=== PATIENT | female | born 1965 | race Caucasian/White ===

== ENCOUNTER 2021-11-21 11:47 | Emergency (ER) | payer BC, SELFPAY ==
[2021-11-21 12:17] VITALS: BP 149/81; PULSE 95; RESP 16; TEMP 36.6; O2SAT 98
--- NOTE | 2021-11-21 13:03 | ED.URI ---
HPI - URI/Sore Throat General Chief Complaint: Upper Respiratory Infection Stated Complaint: Cough,Headache,Congestion Source: patient Mode of arrival: ambulatory Limitations: no limitations History of Present Illness HPI Narrative: 55-year-old female presented for complaint of headache, body ache, cough, congestion, and fever, onset today. Endorses sick contacts. Has not taken anything for symptoms. Denies chest pain, shortness of breath, wheezing, nausea, vomiting, diarrhea. Patient is not vaccinated for Covid Related Data Home Medications Medication Instructions Recorded Confirmed amlodipine 10 mg PO DAILY 11/21/21 11/21/21 icosapent ethyl [Vascepa] 2 g PO BID 11/21/21 11/21/21 losartan-hydrochlorothiazide 1 tablet PO DAILY 11/21/21 11/21/21 metformin 1,500 mg PO DAILY 11/21/21 11/21/21 metoprolol succinate 50 mg PO DAILY 11/21/21 11/21/21 rosuvastatin 5 mg PO DAILY 11/21/21 11/21/21 trazodone 100 mg PO DAILY 11/21/21 11/21/21 Allergies Allergy/AdvReac Type Severity Reaction Status Date / Time No Known Allergies Allergy Verified 11/21/21 12:14 Review of Systems Review of Systems: CONSTITUTIONAL: Endorses malaise, chills, sweats, fever. EYES: Denies visual changes, redness, or discharge. ENT: Reports rhinorrhea, congestion, sinus pain, otalgia and sore throat. CARDIOVASCULAR: Denies chest pain, palpitations, or edema. RESPIRATORY: Reports cough, post nasal drainage. Denies dyspnea. GASTROINTESTINAL: Denies abdominal pain, nausea, vomiting, diarrhea SKIN: Denies rash or itching. MUSCULOSKELETAL: Denies myalgia. NEUROLOGIC: Denies headache. [facility] Comments At time of signature, I have reviewed and agree with nursing past medical, surgical, social and family history unless otherwise noted. Please see nursing chart for further information. There is no relevant family history pertinent to the presenting complaint Exam Narrative: GENERAL: Ill-appearing, no acute distress. HEAD: Normocephalic EYES: PERRLA, conjunctivae clear ENT: Mucous membranes moist. TM pearly cortez with dull light reflex bilaterally; no tragal tenderness. Oropharynx erythematous without lesions. Tonsils enlarged and without exudate, no drooling, no hoarseness, no trismus, uvula midline. NECK: Supple. No lymphadenopathy CHEST: Clear to auscultation, breath sounds equal. No wheezing, rhonchi, rales, or stridor. No respiratory distress, speaks in full sentences. HEART: Regular rate and rhythm. No murmur heard. SKIN: Warm, dry, no rash. NEURO: Alert and oriented x3. PSYCH: Normal mood and affect Course Course Emergency Course: Covid positive Patient is aware of diagnosis, understands and agrees to treatment plan. Anticipatory guidance given. Patient agrees to follow-up as directed and is aware of reasons to seek care at the emergency department. Portions of this record may have been created with voice recognition software Level of Care: Express Care Visit Vital Signs Vital signs: Vital Signs Temperature 98 F 11/21/21 12:17 Pulse Rate 95 11/21/21 12:17 Respiratory Rate 16 11/21/21 12:17 Blood Pressure 149/81 H 11/21/21 12:17 Pulse Oximetry 98 11/21/21 12:17 Temperature 98 F 11/21/21 12:17 Pulse Rate 95 11/21/21 12:17 Respiratory Rate 16 11/21/21 12:17 Blood Pressure 149/81 H 11/21/21 12:17 Pulse Oximetry 98 11/21/21 12:17 MDM - URI/Sore Throat Differential Diagnosis Differential diagnosis: Likely upper respiratory infection, sinusitis, viral infection and influenza Lab Data Attestation: I reviewed the patient's lab results. Labs: Lab Results 11/21/21 Range/Units 12:20 POC SARS CoV-2 Ag Positive (Negative) Discharge Plan Discharge Clinical Impression: COVID-19 Patient Disposition: Home, Self-Care Condition: Stable Instructions: Antibiotic Form, COVID-19 (Coronavirus Disease 2019) (ED) Additional Instructions: Your rapid COVID test was positive today. The followin
--- NOTE | 2021-11-21 13:12 | ED.URI ---
HPI - URI/Sore Throat General Chief Complaint: Upper Respiratory Infection Stated Complaint: Cough,Headache,Congestion Source: patient Mode of arrival: ambulatory Limitations: no limitations History of Present Illness HPI Narrative: 55-year-old female presented for complaints of sinus pressure, congestion cough, sore throat, body aches, fever worsening over the past 2 days. She denies chest pain, shortness of breath, wheezing, nausea, vomiting. She has had 2 Covid vaccine, waiting on booster. She denies sick contacts. She has been taking Tylenol and Zyrtec for her symptoms. Related Data Home Medications Medication Instructions Recorded Confirmed amlodipine 10 mg PO DAILY 11/21/21 11/21/21 icosapent ethyl [Vascepa] 2 g PO BID 11/21/21 11/21/21 losartan-hydrochlorothiazide 1 tablet PO DAILY 11/21/21 11/21/21 metformin 1,500 mg PO DAILY 11/21/21 11/21/21 metoprolol succinate 50 mg PO DAILY 11/21/21 11/21/21 rosuvastatin 5 mg PO DAILY 11/21/21 11/21/21 trazodone 100 mg PO DAILY 11/21/21 11/21/21 Allergies Allergy/AdvReac Type Severity Reaction Status Date / Time No Known Allergies Allergy Verified 11/21/21 12:14 Review of Systems Review of Systems: CONSTITUTIONAL: Endorses malaise, chills, sweats, fever. EYES: Denies visual changes, redness, or discharge. ENT: Reports rhinorrhea, congestion, sinus pain, otalgia and sore throat. CARDIOVASCULAR: Denies chest pain, palpitations, or edema. RESPIRATORY: Reports cough, post nasal drainage. Denies dyspnea. GASTROINTESTINAL: Denies abdominal pain, nausea, vomiting, diarrhea SKIN: Denies rash or itching. MUSCULOSKELETAL: Denies myalgia. NEUROLOGIC: Denies headache. [facility] Comments At time of signature, I have reviewed and agree with nursing past medical, surgical, social and family history unless otherwise noted. Please see nursing chart for further information. There is no relevant family history pertinent to the presenting complaint Exam Narrative: GENERAL: Ill-appearing, nontoxic no acute distress. HEAD: Normocephalic EYES: PERRLA, conjunctivae clear ENT: Mucous membranes moist. TM pearly cortez with dull light reflex bilaterally; no tragal tenderness. Oropharynx erythematous without lesions. Tonsils enlarged and erythematous without exudate, no drooling, no hoarseness, no trismus, uvula midline. NECK: Supple. No lymphadenopathy CHEST: Clear to auscultation, breath sounds equal. No wheezing, rhonchi, rales, or stridor. No respiratory distress, speaks in full sentences. HEART: Regular rate and rhythm. No murmur heard. SKIN: Warm, dry, no rash. NEURO: Alert and oriented x3. PSYCH: Normal mood and affect Course Course Emergency Course: Patient is aware of diagnosis, understands and agrees to treatment plan. Anticipatory guidance given. Patient agrees to follow-up as directed and is aware of reasons to seek care at the emergency department. Portions of this record may have been created with voice recognition software Level of Care: Express Care Visit Vital Signs Vital signs: Vital Signs Temperature 98 F 11/21/21 12:17 Pulse Rate 95 11/21/21 12:17 Respiratory Rate 16 11/21/21 12:17 Blood Pressure 149/81 H 11/21/21 12:17 Pulse Oximetry 98 11/21/21 12:17 Temperature 98 F 11/21/21 12:17 Pulse Rate 95 11/21/21 12:17 Respiratory Rate 16 11/21/21 12:17 Blood Pressure 149/81 H 11/21/21 12:17 Pulse Oximetry 98 11/21/21 12:17 Reviewed MDM - URI/Sore Throat Differential Diagnosis Differential diagnosis: Likely upper respiratory infection and viral infection Lab Data Attestation: I reviewed the patient's lab results. Discharge Plan Discharge Clinical Impression: COVID-19 Patient Disposition: Home, Self-Care Condition: Stable Instructions: Antibiotic Form, COVID-19 (Coronavirus Disease 2019) (ED) Additional Instructions: Your rapid COVID test was positive today. The following recommendations have been made by the CDC and l
== END 2021-11-21 13:25 | disposition home or self-care (01) ==
PROVIDERS: Emergency Provider Nurse Practitioner Family; PCP Internal Medicine
DX: U07.1 COVID-19 (principal); E11.42 Type 2 diabetes mellitus with diabetic polyneuropathy; I10 Essential (primary) hypertension; M19.072 Primary osteoarthritis, left ankle and foot; M19.071 Primary osteoarthritis, right ankle and foot; M19.042 Primary osteoarthritis, left hand; M19.041 Primary osteoarthritis, right hand
CPT/HCPCS: 87426; 99203; C9803; G0463